=== PATIENT | male | born 1960 | race African-American/Black ===

== ENCOUNTER 2023-01-03 13:34 | Emergency (ER) | payer OTHER, SELFPAY ==
[2023-01-03] MEDS ORDERED: Cyclobenzaprine 10 MG TAB ONE (15:57)
[2023-01-03] MEDS ORDERED: Acetaminophen 500 MG TAB ONE (15:57)
== END 2023-01-03 16:20 | disposition home or self-care (01) ==
LOC: CSHERS 13:34
DX: M54.2 Cervicalgia (principal); E11.9 Type 2 diabetes mellitus without complications; I10 Essential (primary) hypertension; Z79.84 Long term (current) use of oral hypoglycemic drugs; Z79.899 Other long term (current) drug therapy
CPT/HCPCS: 36416; 99283